=== PATIENT | female | born 1995 | race Caucasian/White ===

== ENCOUNTER 2021-06-08 12:58 | Emergency (ER) | payer BC ==
[~2021-06-08] VITALS: Ht 170.2 cm; Wt 70.5 kg
[2021-06-08 13:43] VITALS: BP 134/110
[2021-06-08] MEDS ORDERED: morphine 4 MG/ML inj SYRINge IM ONE (13:45)
[2021-06-08 14:56] LABS: HCG SERUM QL NEGATIVE
[2021-06-08] MEDS ORDERED: ibuprofen tablet 400 MG TABLET PO ONE (16:05)
[2021-06-08] MEDS ORDERED: LORA-269 PO ×2 (16:13→16:14)
[2021-06-08] MEDS ORDERED: HYDR-3965 PO ×2 (16:13→16:14)
[2021-06-08] MEDS ORDERED: IBUP-1986 PO (16:13)
[2021-06-08] MEDS ORDERED: HYDROcodone/acetaminophen 5mg/325mg tablet PO ONE (16:45)
[2021-06-08] MEDS ORDERED: ondansetron 4mg rapidly disintigrating tab PO ONE (16:45)
== END 2021-06-08 17:52 | disposition home or self-care (01) ==
LOC: ER 13:00
DX: S33.5XXA Sprain of ligaments of lumbar spine, initial encounter (principal); S29.012A Strain of muscle and tendon of back wall of thorax, initial encounter; S86.812A Strain of other muscle(s) and tendon(s) at lower leg level, left leg, initial encounter; R20.0 Anesthesia of skin; M54.50 Low back pain, unspecified; M25.562 Pain in left knee; Z79.899 Other long term (current) drug therapy; X58.XXXA Exposure to other specified factors, initial encounter; Y93.89 Activity, other specified; Y92.89 Other specified places as the place of occurrence of the external cause; Y99.8 Other external cause status
CPT/HCPCS: 29505; 36415; 72070; 72131; 73560; 84703; 99285